=== PATIENT | female | born 1950 | race Caucasian/White ===

== ENCOUNTER 2020-02-25 02:39 | Emergency (ER) | payer MEDICARE, OTHER, BC ==
[2020-02-25 03:57] LABS: ABS Lymphocytes 0.8 10^3/ul (1.0-4.8); ABS Monocytes 0.5 10^3/ul (0-0.8); Hematocrit 41 % (35-47); Lymphocyte % 5.9 %; Mean Corpuscular HGB Conc 34 g/dL (31-36); Mean Corpuscular Hemoglobin 30 pg (27-31); Mean Corpuscular Volume 86 fL (80-97); Mean Platelet Volume 7.9 fL (7.4-10.4); Platelet Count 271 10^3/uL (150-450); Red Blood Count 4.71 10^6 /uL (3.70-4.87); Red Cell Distribution Width 13 % (10-15); White Blood Count 14.3 10^3/uL (3.5-10.8)
[2020-02-25 04:03] LABS: INR 0.93 (0.82-1.09)
[2020-02-25 04:16] LABS: Albumin 4.3 g/dL (3.2-5.2); Albumin/Globulin Ratio 1.5 (1-3); C Reactive Protein 1.33 mg/L (<8.01); Calcium 9.2 mg/dL (8.6-10.3); EGFR African American 81.3 (>60); EGFR Non-African American 67.2 (>60); Globulin 2.8 g/dL (2-4); Potassium 4.1 mmol/L (3.5-5.0); Total Bilirubin 0.6 mg/dL (0.2-1.0); Total Protein 7.1 g/dL (6.4-8.9)
[2020-02-25 05:26] LABS: Urine Appearance Cloudy; Urine Bilirubin Negative (Negative); Urine Blood Negative (Negative); Urine Color Yellow; Urine Glucose Negative (Negative); Urine Ketones Negative (Negative); Urine Nitrite Negative (Negative); Urine Protein Negative (Negative); Urine Specific Gravity 1.014 (1.010-1.030); Urine Urobilinogen Negative (Negative)
[2020-02-25] MEDS ORDERED: NS 0.9% 1000 ml BAG 1,000 ML IV ONE (05:34)
[2020-02-25] MEDS ORDERED: Iohexol 300 (CONTRAST) 10 ML SDV IV ONE (05:44)
[2020-02-25 06:14] VITALS: BP 136/68
== END 2020-02-25 07:24 | disposition home or self-care (01) ==
LOC: ED 02:39

== ENCOUNTER 2024-08-07 00:47 | Observation (INO) ==
[2024-08-07 01:23] LABS: ABS Eosinophils 0.1 10^3/uL (0.0-0.5); ABS Monocytes 0.6 10^3/uL (0.0-0.9); ABS Neutrophils 3.4 10^3/uL (1.5-7.6); ABS Nucleated RBC 0.01 10^3/ul; Eosinophil % 1.7 %; Hematocrit 45.2 % (35-45); Hemoglobin 15.2 g/dL (11.5-14.3); Lymphocyte % 32.6 %; Mean Corpuscular Hemoglobin 29.4 pg (27-33); Mean Corpuscular Hgb Conc 33.5 g/dL (31-36); Mean Corpuscular Volume 87.8 fL (80-97); Nucleated Red Blood Cells % 0.2 %/100WBC (0.0-0.8); Platelet Count 269 10^3/uL (150-450); Red Blood Count 5.15 10^6/uL (3.63-4.92); White Blood Count 6.1 10^3/uL (3.8-11.8)
[2024-08-07 01:36] LABS: INR 0.93 (0.85-1.14)
[2024-08-07 02:02] LABS: Albumin 4.6 g/dL (3.2-5.2); Albumin/Globulin Ratio 1.7 (1-3); Calcium 9.7 mg/dL (8.6-10.3); Creatinine, Serum 0.72 mg/dL (0.51-0.95); Globulin 2.7 g/dL (2-4); Total Bilirubin 0.8 mg/dL (0.2-1.0); Total Protein 7.3 g/dL (6.4-8.9); eGFR CKD-EPI 87.7 (>60)
[2024-08-07 03:00] LABS: High Sensitivity Troponin 1 Hr 44 pg/mL (<15)
[2024-08-07] MEDS ORDERED: Sulfur Hexaflouride MICROSPHR 25 MG VIAL IV PRN (04:47)
[2024-08-07 05:49] LABS: HDL Cholesterol 74.5 mg/dL; Magnesium 1.9 mg/dL (1.9-2.7)
[2024-08-07 14:36] LABS: High Sensitivity Troponin 1 Hr 71 pg/mL (<15)
[2024-08-08 15:10] VITALS: BP 124/82
== END 2024-08-08 16:12 | disposition home or self-care (01) ==
LOC: EDHOLD 00:47 → ED 00:47 → SUATTDRO 04:30 → MEDTELE 15:33
PROVIDERS: ADMIT Student in an Organized Health Care Education/Training Program; ATTEND Internal Medicine